=== PATIENT | male | born 2000 | race Caucasian/White ===

== ENCOUNTER 2023-01-04 12:50 | Emergency (ER) | payer OTHER ==
[2023-01-04] MEDS ORDERED: Lidocaine 1% (PF) 30 ML VIAL ONE (13:07)
[2023-01-04] MEDS ORDERED: Bacitracin 1 PK ONE (13:45)
== END 2023-01-04 13:53 | disposition home or self-care (01) ==
LOC: CSHERS 12:50
DX: S61.012A Laceration without foreign body of left thumb without damage to nail, initial encounter (principal); W26.0XXA Contact with knife, initial encounter
CPT/HCPCS: 12001; J2001